=== PATIENT | female | born 1985 | race Caucasian/White ===

== ENCOUNTER 2024-04-08 15:09 | Emergency (ER) | payer OTHER, SELFPAY ==
[2024-04-08 15:14] VITALS: BP 132/82
--- NOTE | 2024-04-08 15:14 | ED.GENMED ---
ED Provider Triage
<Camden Proctor PA-C - Last Filed: 04/09/24 08:04>
-
Patient seen by provider in Triage?: Seen in Triage
Attestation: A medical screening examination has been initiated by a qualified medical provider. Based on the assessment performed at this time, it has been determined that an emergent medical condition may exist and the patient has been informed
that further medical evaluation and possible additional diagnostic testing may be needed.
HPI: 39F, bipolar disorder, increased thoughts of self harm/SI, stopped meds a few weeks ago. Therapist recently and has no one else to follow up with other than psychiatrist. Patient brought back into Crisis bed 1 for further evaluation
GENERAL: Alert , in no apparent distress
EYE: No visual abnormalities.
NECK: Trachea midline
ENT: No visible abnormalities.
LUNGS: No acute respiratory distress
NEUROLOGICAL: Alert and oriented
SKIN: Skin intact. No visible changes.
MUSCULOSKELETAL: Moving extremities normally
PSYCH: Normal and appropriate interaction.
This is a medical evaluation conducted in person to initiate diagnostic evaluation and provide initial therapeutics. Please see further documentation by the treating clinician.
History of Present Illness
<Camden Proctor PA-C - Last Filed: 04/09/24 08:04>
General
Chief Complaint: Suicidal Ideation
Time Seen by Provider: 04/08/24 15:21
<Crow Ramirez DO - Last Filed: 04/08/24 17:01>
General
Source: patient and family
Exam Limitations: none
Nursing documentation reviewed up to this point in time: agreed with
History of Present Illness
History of Present Illness:
39 female, bipolar noncompliant with meds called her brother is feeling suicidal drank a lot of alcohol last night, asked her mother to bring her to the ER denies
Past History
<Camden Proctor PA-C - Last Filed: 04/09/24 08:04>
Social History
Personal: Single
Living: with family
Employment: Employed
<Crow Ramirez DO - Last Filed: 04/08/24 17:01>
Past History
ED Past Medical History: Psychiatric
Social History
Tobacco: Smoker
Alcohol: Occasional
Drug: None
Review of Systems
<Crow Ramirez DO - Last Filed: 04/08/24 17:01>
Review of Systems
All Other Systems: Not applicable
Constitutional: Reports sleep disturbance
Psychiatric: Reports depression, anxiety and suicidal
Phy Exam
<Crow Ramirez DO - Last Filed: 04/08/24 17:01>
Physical Exam
Physical Exam:
Physical Exam
General: Tearful but cooperative 39-year-old
Neck: No jaundice
Heart: s1/s2 regular rate and rhythm, no murmur. equal radial pulses.
Lungs: no acute respiratory distress. clear bilaterally
Abdomen: Not tender
Neuro: alert and oriented. no focal neurological deficits nontender
Skin: no rash
Psychiatric: Tearful, admits to depression suicidal thoughts
Extremities: no edema.
Course
<Camden Proctor PA-C - Last Filed: 04/09/24 08:04>
Orders/Labs/Results
Orders:
Orders
04/08/24 15:11
1:1 Observation - Suicide/ Violent Behavior As Directed
Crisis Consult Urgent
Reason for Consult: +SI
04/08/24 15:32
0.9% Sodium Chloride 1000 ml [Nss] 1,000 ml IV BOLUS
04/08/24 15:36
Add On- LAB Urgent
Tests Added?: Salicylates, acetaminophen
04/08/24 15:59
Acetaminophen Urgent
Comment: ADD ON
Complete Blood Count/With Diff Urgent
Comprehensive Metabolic Panel Urgent
HCG, Serum Qualitative Screen Urgent
Comment: ADD ON
Salicylate Urgent
Comment: ADD ON
04/08/24 17:00
Add On- LAB Urgent
Tests Added?: hCG qualitative
04/08/24 17:04
Urine Drug Abuse Screen Urgent
Date Specimen was Collected: 04/08/24
Time Specimen was Collected: 16:57
Abnormal Lab Results
04/08/24 04/08/24
15:59 17:04
MCHC 32.2 L g/dL
(33.0-37.0)
RDW 15.2 H %
(11.5-14.5)
MPV 10.8 H fL
(7.4-10.4)
Chloride 108 H mmol/L
(98-107)
Creatinine 0.5 L mg/dL
(0.6-1.0)
Salicylates < 1.0 L mg/dl
(2.0-20.0)
Acetaminophen < 10 L ug/ml
(10-30)
U Marijuana (THC) Screen Positive H
(Negative)
04/08/24 15:59
04/08/24 15:59
Vital Signs
Initial and Last Documented VS:
Initial Vital Signs
Temp Pulse Resp BP Pulse Ox
98.2 F 109 16 132/82 98
04/08/24 15:14 04/08/24 15:14 04/08/24 15:14 04/08/24 15:14 04/08/24 15:14
Last Documented Vital Signs
Temp Pulse Resp BP Pulse Ox
98.2 F 109 16 132/82 98
04/08/24 15:14 04/08/24 15:14 04/08/24 15:14 04/08/24 15:14 04/08/24 15:14
<Crow Ramirez, DO - Last Filed: 04/08/24 17:01>
Orders/Labs/Results
Orders:
Orders
04/08/24 15:11
1:1 Observation - Suicide/ Violent Behavior As Directed
Crisis Consult Urgent
Reason for Consult: +SI
04/08/24 15:32
0.9% Sodium Chloride 1000 ml [Nss] 1,000 ml IV BOLUS
04/08/24 15:36
Add On- LAB Urgent
Tests Added?: Salicylates, acetaminophen
04/08/24 15:59
Acetaminophen Urgent
Comment: ADD ON
Complete Blood Count/With Diff Urgent
Comprehensive Metabolic Panel Urgent
HCG, Serum Qualitative Screen Urgent
Comment: ADD ON
Salicylate Urgent
Comment: ADD ON
04/08/24 17:00
Add On- LAB Urgent
Tests Added?: hCG qualitative
04/08/24 17:04
Urine Drug Abuse Screen Urgent
Date Specimen was Collected: 04/08/24
Time Specimen was Collected: 16:57
Abnormal Lab Results
04/08/24 04/08/24
15:59 17:04
MCHC 32.2 L g/dL
(33.0-37.0)
RDW 15.2 H %
(11.5-14.5)
MPV 10.8 H fL
(7.4-10.4)
Chloride 108 H mmol/L
(98-107)
Creatinine 0.5 L mg/dL
(0.6-1.0)
Salicylates < 1.0 L mg/dl
(2.0-20.0)
Acetaminophen < 10 L ug/ml
(10-30)
U Marijuana (THC) Screen Positive H
(Negative)
04/08/24 15:59
04/08/24 15:59
Vital Signs
Initial and Last Documented VS:
Initial Vital Signs
Temp Pulse Resp BP Pulse Ox
98.2 F 109 16 132/82 98
04/08/24 15:14 04/08/24 15:14 04/08/24 15:14 04/08/24 15:14 04/08/24 15:14
Last Documented Vital Signs
Temp Pulse Resp BP Pulse Ox
98.2 F 109 16 132/82 98
04/08/24 15:14 04/08/24 15:14 04/08/24 15:14 04/08/24 15:14 04/08/24 15:14
<Camden Proctor PA-C - Last Filed: 04/09/24 08:04>
*Critical Care Note
Total Time (30-74mins, 75-104mins- exclusive of procedures): Not Applicable
<Crow Ramirez DO - Last Filed: 04/08/24 17:01>
Update Note
Update Note:
Update labs are noted, previously spoke with crisis patient like to sign herself in the hospital for mental health which is reasonable, hCG is pending
ED Attending Note
<Camden Proctor PA-C - Last Filed: 04/09/24 08:04>
-
Portions of this chart may have been created with voice recognition software.� Occasional wrong word or��sound alike� substitutions may have occurred due to the inherent limitations of voice recognition software.
Discharge Plan
Departure
Patient Disposition: Psych Facility
Date of Disposition: 04/08/24
Time of Disposition: 17:00
Condition: Fair
Covid-19: Not Applicable
Discharge Problem:
Suicidal ideation
Referrals:
UNKNOWN - PT NOT,INTERVIEWE [Family Provider] -
Interventions
Interventions:
*Risk Screen - Suicide Last Done: 04/08/24 15:14
*Neglect/Abuse Screening Last Done: 04/08/24 15:14
*Nursing Disposition Last Done: 04/08/24 23:03
ED-Psychological Assessment Last Done: 04/08/24 18:43
Discharge Date and Time
Discharge Date/Time: 04/08/24 23:05
Print Language: CZECH
[2024-04-08] MEDS: NSS 1000 IV (16:00)
[2024-04-08 16:17] LABS: % Basophils 0.4 % (0-2); % Eosinophils 2.1 % (0-6); % Immature Granulocytes 0.1 % (0-0.5); % Monocytes 6.2 % (1.7-9.3); % Neutrophils 64.2 % (42.2-75.2); Absolute Eosinophils 0.2 10^3/uL (0-0.7); Absolute Lymphocytes 1.9 10^3/uL (1.2-3.4); Absolute Monocytes 0.4 10^3/uL (0.1-0.6); Absolute Neutrophils 4.6 10^3/uL (1.4-6.5); Hematocrit 38.5 % (37.0-47.0); Hemoglobin 12.4 g/dL (12.0-16.0); Mean Corp Hgb Conc. 32.2 g/dL (33.0-37.0); Mean Corpuscular Volume 86.9 fL (81.0-99.0); Mean Platelet Volume 10.8 fL (7.4-10.4); Nucleated Red Blood Cells % 0 %; Platelet Count 346 10^3/uL (130-400); Red Blood Cell Count 4.43 10^6/uL (4.20-5.40); Red Cell Dist. Width 15.2 % (11.5-14.5); White Blood Cell Count 7.1 10^3/uL (4.8-10.8)
[2024-04-08 16:28] LABS: ALT (SGPT) 19 U/L (0-35); AST (SGOT) 28 U/L (14-36); Albumin 4.8 g/dl (3.5-5.0); Alkaline Phosphatase 76 U/L (38-126); Blood Urea Nitrogen 11 mg/dl (7-17); Calcium 8.8 mg/dl (8.4-10.2); Carbon Dioxide 22 mmol/L (22-30); Chloride 108 mmol/L (98-107); Glucose 82 mg/dl (70-99); Potassium 3.9 mmol/L (3.5-5.1); Sodium 144 mmol/L (135-145); Total Bilirubin 0.2 mg/dl (0.2-1.3); Total Protein 7.6 g/dl (6.3-8.2); eGFR > 60.00
[2024-04-08 16:45] LABS: Acetaminophen < 10 ug/ml (10-30); Salicylate < 1.0 mg/dl (2.0-20.0)
[2024-04-08 17:29] LABS: HCG, Serum Qualitative Screen Negative
[2024-04-08 17:33] LABS: Amphetamines Negative (Negative); Barbiturates Negative (Negative); Benzodiazepines Negative (Negative); Buprenorphine Negative (Negative); Cocaine Negative (Negative); Marijuana Positive (Negative); Methadone Negative (Negative); Methamphetamines Negative (Negative); Opiates Negative (Negative); Phencyclidine Negative (Negative); Tricyclic Antidepressants Negative (Negative)
--- NOTE | 2024-04-08 19:00 | EDRN ---
Report received, patient resting comfortably with mom and boyfriend at bedside patient will be going to [place] around 2200
--- NOTE | 2024-04-08 21:00 | EDRN ---
Patient had a few questions, went in and spoke with patient and family members and answered all questions, removed IV for her and got her some [place]
== END 2024-04-08 23:05 ==
LOC: EMR 15:09
PROVIDERS: Physician Assistant Medical; EMERGENCY PHYSICIAN Emergency Medicine
DX: R45.851 Suicidal ideations (principal); F31.9 Bipolar disorder, unspecified; Z91.148 Patient's other noncompliance with medication regimen for other reason; F10.90 Alcohol use, unspecified, uncomplicated; F17.200 Nicotine dependence, unspecified, uncomplicated; F32.A Depression, unspecified; F41.9 Anxiety disorder, unspecified; G47.9 Sleep disorder, unspecified
CPT/HCPCS: 99285; 96360; 80053; 80143; 80179; 80306; 84703; 85025